=== PATIENT | male | born 1990 | race African-American/Black ===

== ENCOUNTER 2019-08-20 20:51 | Emergency (ER) | payer SELFPAY ==
[~2019-08-20] VITALS: Ht 175.3 cm; Wt 63.0 kg
[2019-08-20 23:32] VITALS: BP 119/87
== END 2019-08-20 23:36 | disposition home or self-care (01) ==
LOC: ER 20:51
DX: Z00.00 Encounter for general adult medical examination without abnormal findings (principal); F10.21 Alcohol dependence, in remission; F17.210 Nicotine dependence, cigarettes, uncomplicated
CPT/HCPCS: 99283; C1893; Z7610

== ENCOUNTER 2021-05-04 10:15 | Emergency (ER) | payer MEDICAID ==
[~2021-05-04] VITALS: Ht 182.9 cm; Wt 77.0 kg
[2021-05-04 10:47] VITALS: BP 120/75
[2021-05-04] MEDS ORDERED: IBUP-2029 MT (11:09)
[2021-05-04] MEDS ORDERED: TUSSL MT (11:09)
== END 2021-05-04 11:22 | disposition home or self-care (01) ==
LOC: ER 10:15
DX: M62.830 Muscle spasm of back (principal); R05 Cough; F12.10 Cannabis abuse, uncomplicated; F17.210 Nicotine dependence, cigarettes, uncomplicated; F10.21 Alcohol dependence, in remission
CPT/HCPCS: 99282